=== PATIENT | female | born 1985 | race Caucasian/White ===

== ENCOUNTER 2017-05-12 13:45 | Inpatient (IN) | payer MEDICAID ==
[2017-05-12] MEDS ORDERED: Sodium Chloride 0.9% 10 ML Syringe FLUSH PRN (14:53)
[2017-05-12] MEDS ORDERED: Ibuprofen 600 MG Tab PO PRN (14:57)
[2017-05-12] MEDS ORDERED: Docusate Sodium 100 MG Cap PO PRN (14:57)
--- NOTE | 2017-05-12 14:58 | PCM.HP ---
H&P History of Present Illness - General Date of Service: 05/12/17 Source of Information: Patient History Limitations: Reports: No Limitations - History of Present Illness Initial Comments - Free Text/Narative: Patient is a 32 y/o POD#6 from planned RLTCS and TL done in [place]. Presented to clinic due to incision concerns and edema. Also noted feeling slightly unwell recently. Exam in clinic notable for an initial BP of 160/100 and a repeat value of 148/92. Physical exam was remarkable for hyper-reflexia. Labs notable for AST of 46 and ALT of 94. Normal creatinine and platelets. She was asked to present for IV magnesium for concerns of preeclampsia. - Related Data Allergies/Adverse Reactions: Allergies Allergy/AdvReac Type Severity Reaction Status Date / Time No Known Allergies Allergy Verified 05/12/17 14:26 Home Medications: Home Meds Acetaminophen/oxyCODONE [Percocet 325-10 MG] 1 - 2 tab PO Q6H PRN 05/12/17 [ History] Docusate Sodium [Colace] 100 mg PO BID 05/12/17 [History] Ferrous Sulfate [Slow Fe] 1 tab PO DAILY 05/12/17 [History] PNV95/Ferrous Fumarate/FA [ Vitamin Tablet] 1 each PO DAILY 05/12/17 [ History] Past Medical History [employer] History: Reports: Polycystic Ovaries : 4 Para: 3 - Past Surgical History HEENT Surgical History: Reports: Tonsillectomy, Other (See Below) (ear surgery) Female Surgical History: Reports: Section, Tubal Ligation Musculoskeletal Surgical History: Reports: Other (See Below) (ankle surgery) Social & Family History - Tobacco Use Smoking Status *Q: Former Smoker - Alcohol Use Alcohol Use History: No - Recreational Drug Use Recreational Drug Use: No H&P Review of Systems - Review of Systems: Review Of Systems: See Below General: Reports: Malaise Pulmonary: Reports: No Symptoms Cardiovascular: Reports: No Symptoms Gastrointestinal: Reports: No Symptoms Genitourinary: Reports: No Symptoms Musculoskeletal: Reports: No Symptoms Neurological: Reports: No Symptoms Exam - Exam Exam: See Below - Vital Signs Vital Signs: Last Vital Signs Temp 36.9 C 05/12/17 14:13 Pulse 78 05/12/17 14:47 Resp 16 05/12/17 14:13 BP 139/78 05/12/17 14:47 Pulse Ox 97 05/12/17 14:47 Weight: 95.708 kg - Exam General: Alert, Oriented, Cooperative Lungs: Clear to Auscultation, Normal Respiratory Effort Cardiovascular: Regular Rate, Regular Rhythm GI/Abdominal Exam: Soft, Non-Tender Extremities: Normal Inspection, Pedal Edema Skin: Warm, Dry, Intact Neurological: Reflexes Equal Bilateral DTR: 2+: Patella (L), Patella (R) - Patient Data Result Diagrams: 05/13/17 06:05 05/13/17 06:05 *Q Meaningful Use (ADM) - VTE *Q VTE Criteria *Q: - Stroke *Q Stroke Criteria *Q: - AMI *Q AMI Criteria *Q: - Problem List (1) Pre-eclampsia, SNOMED Code(s): 677699891 ICD Code: O14.95 - UNSPECIFIED PRE-ECLAMPSIA, COMPLICATING THE PUERPERIUM Status: Acute Current Visit: Yes (2) Elevated LFTs SNOMED Code(s): 827926626 ICD Code: R79.89 - OTHER SPECIFIED ABNORMAL FINDINGS OF BLOOD CHEMISTRY Status: Acute Current Visit: Yes Problem List Initiated/Reviewed/Updated: Yes Orders Last 24hrs: Active Orders 24 hr Category Date Time Status Bedrest Bathroom Privileges [RC] ASDIRECTED Care 05/12/17 14:53 Active Communication Order [RC] ASDIRECTED Care 05/12/17 14:53 Active Intake and Output [RC] Q4H Care 05/12/17 14:53 Active Notify Provider Status Change [RC] ASDIRECTED Care 05/12/17 14:53 Active Notify Provider Vital Signs [RC] ASDIRECTED Care 05/12/17 14:53 Active Notify Provider [RC] ASDIRECTED Care 05/12/17 14:53 Active Oxygen Therapy [RC] PRN Care 05/12/17 14:53 Active Peripheral IV Care [RC] . DIRECTED Care 05/12/17 14:55 Active Vital Signs [RC] ASDIRECTED Care 05/12/17 14:53 Active Regular Diet [DIET] Diet 05/12/17 Dinner Active Acetaminophen/oxyCODONE [Percocet 325-5 MG] Med 05/12/17 14:56 Ordered 2 tab PO Q6H PRN Docusate Sodium [Colace] Med 05/12/17 14:57 Ordered 100 mg PO BID PRN Ibuprofen [Motrin] Med 05/12/17 14:57 Ordered 600 mg PO Q6H PRN Lactated Ringers [Ringers, Lactated] 1,000 ml Med 05/12/17 15:00 Ordered IV ASDIRECTED Magnesium Sulfate/Water [Magnesium Sulfate 40 GM in Med 05/12/17 15:00 Ordered Water 1000 ML] 40 gm in 1,000 ml IV ASDIRECTED Sodium Chloride 0.9% [Saline Flush] Med 05/12/17 14:53 Ordered 10 ml FLUSH ASDIRECTED PRN Deep Tendon Reflexes [WOMSER] ASDIRECTED Oth 05/12/17 15:00 Ordered Peripheral IV Insertion Adult [OM.PC] Urgent Ot 05/12/17 14:53 Ordered Medication Orders Docusate Sodium (Colace) 100 mg PO BID PRN PRN Reason: Constipation Lactated Ringer's (Ringers, Lactated) 1,000 mls @ 50 mls/hr IV ASDIRECTED TIFFANIE Magnesium Sulfate (Magnesium Sulfate 40 Gm In Water 1000 Ml) 40 gm in 1,000 mls @ 50 mls/hr IV ASDIRECTED TIFFANIE Ibuprofen (Motrin) 600 mg PO Q6H PRN PRN Reason: Pain Oxycodone/Acetaminophen (Percocet 325-5 Mg) 2 tab PO Q6H PRN PRN Reason: Pain Sodium Chloride (Saline Flush) 10 ml FLUSH ASDIRECTED PRN PRN Reason: Keep Vein Open Assessment/Plan Comment:: 32 y/o POD#6 from [facility]LTCS with pre-eclampsia * IV magnesium, 50 cc/hr with LR 50 cc/hr for 24 hours * Strict I&O's * Hourly BP's * Bedrest with bathroom privileges * Repeat labs in AM * Otherwise routine cares
[2017-05-12] MEDS: Lactated Ringers 1,000 ML IV SCH (15:42)
[2017-05-12] MEDS: Magnesium Sulfate/Water 40 GM/1,000 ML BAG IV SCH (15:44)
[2017-05-12] MEDS: Acetaminophen/oxyCODONE 325-5 MG Tab PO PRN (18:07)
[2017-05-13] MEDS: Acetaminophen/oxyCODONE 325-5 MG Tab PO PRN ×3 (00:07→18:22)
[2017-05-13] MEDS ORDERED: Famotidine 20 MG Tab PO ONE ×2 (08:29→10:45)
[2017-05-13] MEDS ORDERED: Calcium Carbonate 500 MG Tab.Chew PO PRN (08:29)
--- NOTE | 2017-05-13 08:30 | PCM.PN ---
- General Info Date of Service: 05/13/17 Functional Status: Reports: Pain Controlled, Tolerating Diet, Urinating - Review of Systems General: Reports: Fatigue HEENT: Denies: Visual Changes Pulmonary: Reports: No Symptoms Cardiovascular: Reports: No Symptoms Gastrointestinal: Reports: No Symptoms Genitourinary: Reports: No Symptoms Neurological: Denies: Headache - Patient Data Vitals - Most Recent: Last Vital Signs Temp 36.5 C 05/13/17 05:30 Pulse 84 05/13/17 05:30 Resp 16 05/13/17 05:30 BP 134/86 05/13/17 05:30 Pulse Ox 95 05/13/17 05:30 Weight - Most Recent: 95.708 kg I&O - Last 24 Hours: Intake & Output 05/12/17 05/13/17 05/13/17 22:59 06:59 14:59 Intake Total 1099 600 Output Total 2300 2000 Balance -1201 -1400 Lab Results Last 24 Hours: Laboratory Results - last 24 hr 05/13/17 05/13/17 Range/Units 06:05 06:05 WBC 7.60 (3.98-10.04) K/mm3 RBC 3.62 L (3.98-5.22) M/mm3 Hgb 11.3 (11.2-15.7) gm/L Hct 34.7 (34.1-44.9) % MCV 95.9 H (79.4-94.8) fl MCH 31.2 (25.6-32.2) pg MCHC 32.6 (32.2-35.5) g/dl RDW Std Deviation 48.9 H (36.4-46.3) fL Plt Count 290 (182-369) K/mm3 MPV 10.7 (9.4-12.3) fl Creatinine 0.9 (0.55-1.02) mg/dL Est Cr Clr Drug Dosing 72.29 mL/min Estimated GFR (MDRD) > 60 (>60) mL/min AST 30 (15-37) U/L ALT 77 H (14-59) U/L Med Orders - Current: Current Medications Docusate Sodium (Colace) 100 mg PO BID PRN PRN Reason: Constipation Last Admin: 05/12/17 21:14 Dose: 100 mg Lactated Ringer's (Ringers, Lactated) 1,000 mls @ 50 mls/hr IV ASDIRECTED [facility] Last Admin: 05/12/17 15:42 Dose: 50 mls/hr Magnesium Sulfate (Magnesium Sulfate 40 Gm In Water 1000 Ml) 40 gm in 1,000 mls @ 50 mls/hr IV ASDIRECTED [facility] Last Admin: 05/12/17 15:44 Dose: 50 mls/hr Ibuprofen (Motrin) 600 mg PO Q6H PRN PRN Reason: Pain Oxycodone/Acetaminophen (Percocet 325-5 Mg) 2 tab PO Q6H PRN PRN Reason: Pain Last Admin: 05/13/17 05:43 Dose: 1 tab Sodium Chloride (Saline Flush) 10 ml FLUSH ASDIRECTED PRN PRN Reason: Keep Vein Open - Exam General: Alert, Oriented, Cooperative Lungs: Clear to Auscultation, Normal Respiratory Effort Cardiovascular: Regular Rate, Regular Rhythm GI/Abdominal Exam: Soft, Non-Tender Extremities: Normal Inspection, Pedal Edema (improving) Wound/Incisions: Healing Well, No Drainage Neurological: Reflexes Equal Bilateral (+2) - Problem List & Annotations (1) Pre-eclampsia, SNOMED Code(s): 164545124 Code(s): O14.95 - UNSPECIFIED PRE-ECLAMPSIA, COMPLICATING THE PUERPERIUM Status: Acute Current Visit: Yes (2) Elevated LFTs SNOMED Code(s): 517147752 Code(s): R79.89 - OTHER SPECIFIED ABNORMAL FINDINGS OF BLOOD CHEMISTRY Status: Acute Current Visit: Yes - Problem List Review Problem List Initiated/Reviewed/Updated: Yes - My Orders Last 24 Hours: My Active Orders 05/12/17 13:50 Patient Status [ADT] Routine 05/12/17 14:53 Bedrest Bathroom Privileges [RC] ASDIRECTED Communication Order [RC] ASDIRECTED Intake and Output [RC] Q4H Notify Provider Status Change [RC] ASDIRECTED Notify Provider Vital Signs [RC] ASDIRECTED Notify Provider [RC] ASDIRECTED Oxygen Therapy [RC] PRN Vital Signs [RC] Q4HR Sodium Chloride 0.9% [Saline Flush] 10 ml FLUSH ASDIRECTED PRN Peripheral IV Insertion Adult [OM.PC] Urgent 05/12/17 14:55 Peripheral IV Care [RC] Q2HR 05/12/17 14:56 Acetaminophen/oxyCODONE [Percocet 325-5 MG] 2 tab PO Q6H PRN 05/12/17 14:57 Docusate Sodium [Colace] 100 mg PO BID PRN Ibuprofen [Motrin] 600 mg PO Q6H PRN 05/12/17 15:00 Lactated Ringers [Ringers, Lactated] 1,000 ml IV ASDIRECTED Magnesium Sulfate/Water [Magnesium Sulfate 40 GM in Water 1000 ML] 40 gm in 1, 000 ml IV ASDIRECTED Deep Tendon Reflexes [WOMSER] ASDIRECTED 05/12/17 16:05 Code Status [Resuscitation Status] Routine 05/12/17 16:57 Antiembolic Devices [RC] PER UNIT ROUTINE SCD [Sequential Compression Device] [OM.PC] Routine 05/12/17 Dinner Regular Diet [DIET] 05/13/17 08:29 Calcium Carbonate [Tums] 500 mg PO Q2HR PRN Famotidine [Pepcid] 20 mg PO ONETIME ONE - Assessment Assessment:: 32 y/o POD#7 from RLTCS/HD#2 admitted for pre-eclampsia - Plan Plan:: * IV magnesium, 50 cc/hr with LR 50 cc/hr for 24 hours - will discontinue at 1600 today * Strict I&O's - has been having excellent UOP, has lost 2 lbs since admission * Hourly BP's * Bedrest with bathroom privileges * Repeat labs this AM with improvement in LFT's * Potential late discharge this PM vs tomorrow
[2017-05-13] MEDS: Lactated Ringers 1,000 ML IV SCH (12:31)
[2017-05-13] MEDS: Magnesium Sulfate/Water 40 GM/1,000 ML BAG IV SCH (12:32)
--- NOTE | 2017-05-13 16:10 | PCM.SN ---
- Free Text/Narrative Note: 1600 Patient down 4.2 L of fluid since admission. BP's have remained mild range. Magnesium just discontinued. As long as BP's remain normal/mild range off magnesium will allow patient to discharge home tonight with planned follow up in clinic on 05/17. Yessica Cruz MD
--- NOTE | 2017-05-13 16:12 | PCM.DCSUM1 ---
Discharge Summary - Discharge Data Discharge Date: 05/13/17 Discharge Disposition: Home, Self-Care 01 Condition: Good - Discharge Diagnosis/Problem(s) (1) Pre-eclampsia, SNOMED Code(s): 794917685 ICD Code: O14.95 - UNSPECIFIED PRE-ECLAMPSIA, COMPLICATING THE PUERPERIUM Status: Acute (2) Elevated LFTs SNOMED Code(s): 782277937 ICD Code: R79.89 - OTHER SPECIFIED ABNORMAL FINDINGS OF BLOOD CHEMISTRY Status: Acute - Patient Summary/Data Complications: None Consults: None Recommended Follow-up Testing/Procedures: Follow up 05/17 in clinic for BP check Hospital Course: 32 y/o POD#6 from [facility] and TL was admitted from clinic due to concerns for preeclampsia. In clinic had one severe range and one upper limit mild range BP's along with hyperreflexia and elevated LFT's. She was admitted and started on IV magnesium. BP's with magnesium normal to low mild range. On HD#2, about 12 hours into magnesium, labs repeated and showed improvement in LFT's. Magnesium run for about 24 hours and during this time patient was net negative 4.2L. Magnesium discontinued and BP's jeremiah slightly to mild range, but no severe range BP's. Patient strongly desired d/c to home which was felt reasonable. She was given strict precautions to return with any concerns and otherwise follow up in clinic for planned BP check. - Patient Instructions Diet: Regular Diet as Tolerated Activity: No Lifting Over 10 Pounds (10-15 pounds ) Driving: Do Not Drive (While taking narcotics ) Showering/Bathing: May Shower, No Tub Bathing/Swimming Wound/Incision Care: Keep Operative Site/Wound Site Clean and Dry Notify Provider of: Fever, Increased Pain, Swelling and Redness, Drainage, Nausea and/or Vomiting - Discharge Plan Home Medications: Home Meds Acetaminophen/oxyCODONE [Percocet 325-10 MG] 1 - 2 tab PO Q6H PRN 05/12/17 [ History] Docusate Sodium [Colace] 100 mg PO BID 05/12/17 [History] PNV95/Ferrous Fumarate/FA [ Vitamin Tablet] 1 each PO DAILY 05/12/17 [ History] Patient Handouts: Preeclampsia and Eclampsia, Hypertension During , [id number] Referrals: Yessica Cruz MD [Physician] - (Follow up with Dr. Cruz on 05/17 as scheduled for BP check ) - Discharge Summary/Plan Comment DC Time >30 min.: No - Patient Data Vitals - Most Recent: Last Vital Signs Temp 36.7 C 05/13/17 15:17 Pulse 81 05/13/17 15:17 Resp 14 05/13/17 15:17 BP 136/86 05/13/17 15:17 Pulse Ox 94 L 05/13/17 15:17 Weight - Most Recent: 95.708 kg I&O - Last 24 hours: Intake & Output 05/13/17 05/13/17 05/13/17 06:59 14:59 22:59 Intake Total 600 676 300 Output Total 2000 1500 1100 Balance -1400 -824 -800 Lab Results - Last 24 hrs: Laboratory Results - last 24 hr 05/13/17 05/13/17 Range/Units 06:05 06:05 WBC 7.60 (3.98-10.04) K/mm3 RBC 3.62 L (3.98-5.22) M/mm3 Hgb 11.3 (11.2-15.7) gm/L Hct 34.7 (34.1-44.9) % MCV 95.9 H (79.4-94.8) fl MCH 31.2 (25.6-32.2) pg MCHC 32.6 (32.2-35.5) g/dl RDW Std Deviation 48.9 H (36.4-46.3) fL Plt Count 290 (182-369) K/mm3 MPV 10.7 (9.4-12.3) fl Creatinine 0.9 (0.55-1.02) mg/dL Est Cr Clr Drug Dosing 72.29 mL/min Estimated GFR (MDRD) > 60 (>60) mL/min AST 30 (15-37) U/L ALT 77 H (14-59) U/L Med Orders - Current: Current Medications Calcium Carbonate/Glycine (Tums) 500 mg PO Q2HR PRN PRN Reason: Indigestion Docusate Sodium (Colace) 100 mg PO BID PRN PRN Reason: Constipation Last Admin: 05/12/17 21:14 Dose: 100 mg Lactated Ringer's (Ringers, Lactated) 1,000 mls @ 50 mls/hr IV ASDIRECTED TIFFANIE Last Admin: 05/13/17 12:31 Dose: 50 mls/hr Magnesium Sulfate (Magnesium Sulfate 40 Gm In Water 1000 Ml) 40 gm in 1,000 mls @ 50 mls/hr IV ASDIRECTED TIFFANIE Last Admin: 05/13/17 12:32 Dose: 50 mls/hr Ibuprofen (Motrin) 600 mg PO Q6H PRN PRN Reason: Pain Last Admin: 05/13/17 10:43 Dose: 600 mg Oxycodone/Acetaminophen (Percocet 325-5 Mg) 2 tab PO Q6H PRN PRN Reason: Pain Last Admin: 05/13/17 05:43 Dose: 1 tab Sodium Chloride (Saline Flush) 10 ml FLUSH ASDIRECTED PRN PRN Reason: Keep Vein Open Discontinued Medications Famotidine (Pepcid) 20 mg PO ONETIME ONE Stop: 05/13/17 08:30 Last Admin: 05/13/17 10:41 Dose: 20 mg Famotidine (Pepcid) 20 mg PO ONETIME ONE Stop: 05/13/17 10:46 Last Admin: 05/13/17 13:40 Dose: Not Given *Q Meaningful Use (DIS) - VTE *Q VTE Criteria *Q: - Stroke *Q Stroke Criteria *Q: - AMI *Q AMI Criteria *Q:
[2017-05-13 19:56] VITALS: BP 145/91
== END 2017-05-13 18:30 | disposition home or self-care (01) | DRG 776 ==
LOC: JD.OB 13:45 → OBSVTOIN 13:50 → JD.OB 13:54
PROVIDERS: ADMIT Obstetrics & Gynecology; ATTEND Obstetrics & Gynecology
DX: O14.95 Unspecified pre-eclampsia, complicating the puerperium (principal); R79.89 Other specified abnormal findings of blood chemistry; Z87.891 Personal history of nicotine dependence
CPT/HCPCS: 36415; 82565; 84450; 84460; 85027; A9270-GY; J3475; J7120